=== PATIENT | female | born 1940 | race Caucasian/White ===

== ENCOUNTER 2016-11-06 09:41 | Outpatient (CLI) | payer OTHER ==
[~2016-11-06] VITALS: Ht 165.1 cm; Wt 84.4 kg
[~2016-11-06 09:41] MED LIST: ATOR1TAB19 PO; BALS75CA PO; CALC600T60 PO; CARV12.5 PO; CENTTAB47 PO; FLUO20CA8 PO; PRAD150C PO
[2016-11-06] MEDS ORDERED: NS 1,000 ML IV ONE (10:00)
[2016-11-06] MEDS ORDERED: LIDOCAINE 2% INJ 100 MG/5 ML SDV (FOR ANES.) As Ordered ONE (10:59)
[2016-11-06] MEDS ORDERED: PROPOFOL 200 MG/20 ML VIAL As Ordered ONE ×2 (10:59→11:04)
--- NOTE | 2016-11-06 11:12 | ROOR ---
Patient Name: Asia Sharp Procedure Date: 11/06/2016 10:45 AM Date of : 1940 Age: 76 Room: [facility] Gender: Female Note Status: Finalized Procedure: Total Colonoscopy to Cecum + Bx. To r/o Microscopic Colitis Indications: Lower abdominal pain, Clinically significant diarrhea of unexplained origin, Rectal bleeding Providers: Dionicio Yanez MD Referring MD: Alia West MD Requesting Provider: Medicines: Monitored Anesthesia Care Complications: No immediate complications. Procedure: Pre-Anesthesia Assessment: - The heart rate, respiratory rate, oxygen saturations, blood pressure, adequacy of pulmonary ventilation, and response to care were monitored throughout the procedure. The Colonoscope was introduced through the anus and advanced to the cecum, identified by appendiceal orifice and ileocecal valve. The colonoscopy was performed without difficulty. The patient tolerated the procedure well. The quality of the bowel preparation was excellent. Findings: The perianal and digital rectal examinations were normal. Non-bleeding internal hemorrhoids were found during retroflexion. The hemorrhoids were small and Grade I (internal hemorrhoids that do not prolapse). No other significant abnormalities were identified in a careful examination of the remainder of the colon. Biopsies for histology were taken with a cold forceps from the ascending colon, transverse colon, descending colon and rectosigmoid colon for evaluation of microscopic colitis. The exam was otherwise without abnormality on direct and retroflexion views. Impression: - Non-bleeding internal hemorrhoids. - The examination was otherwise normal on direct and retroflexion views. - Biopsies were taken with a cold forceps from the ascending colon, transverse colon, descending colon and rectosigmoid colon for evaluation of microscopic colitis. - The exam was otherwise normal to the cecum. Recommendation: - Patient has a contact number available for emergencies. The signs and symptoms of potential delayed complications were discussed with the patient. Return to normal activities tomorrow. Written discharge instructions were provided to the patient. - High fiber diet. - Discharge patient to home. - Continue present medications. - Await pathology results. - Telephone GI clinic for pathology results in 1 week. - Return to referring physician. - Check Portal Online for Path Results.([email or web address]) - The findings and recommendations were discussed with the patient's family. Dionicio Yanez MD Dionicio Yanez MD 11/06/2016 11:11:44 AM This report has been signed electronically. Number of Addenda: 0 Note Initiated On: 11/06/2016 10:45 AM Estimated Blood Loss: Estimated blood loss: none.
[2016-11-06 11:39] VITALS: BP 123/66
== END 2016-11-06 11:41 | disposition home or self-care (01) ==
LOC: M OPP 09:41
PROVIDERS: ATTEND Internal Medicine Gastroenterology
DX: R10.30 Lower abdominal pain, unspecified (principal); R19.4 Change in bowel habit; R19.7 Diarrhea, unspecified; K62.5 Hemorrhage of anus and rectum; K64.0 First degree hemorrhoids; I48.91 Unspecified atrial fibrillation; I10 Essential (primary) hypertension; E78.5 Hyperlipidemia, unspecified; E07.9 Disorder of thyroid, unspecified; K52.9 Noninfective gastroenteritis and colitis, unspecified; Z79.01 Long term (current) use of anticoagulants; Z79.899 Other long term (current) drug therapy; Z80.0 Family history of malignant neoplasm of digestive organs

== ENCOUNTER 2018-07-13 17:44 | Emergency (ER) | payer MEDICARE, OTHER ==
[~2018-07-13] VITALS: Ht 165.1 cm; Wt 84.5 kg
[~2018-07-13 17:44] MED LIST changes: -PRAD150C PO; +PRAD150C6 PO
[2018-07-13] MEDS ORDERED: TRAZ-160 (18:10)
[2018-07-13] MEDS ORDERED: FLUO40CA (18:10)
[2018-07-13 21:39] VITALS: BP 146/70
== END 2018-07-13 21:41 | disposition home or self-care (01) ==
LOC: M ED 17:44
DX: F32.9 Major depressive disorder, single episode, unspecified (principal); G47.00 Insomnia, unspecified; Z79.899 Other long term (current) drug therapy

== ENCOUNTER → 2018-08-24 | Outpatient (CLI) | payer MEDICARE ==
[~2018-08-24] MED LIST changes: +FLUO40CA; +TRAZ-252
[2018-08-24 13:35] LABS: CHOLESTEROL RISK RATIO 2.611 (<5)
== END ==
LOC: M WUC 08:28
PROVIDERS: ATTEND Psychiatry & Neurology Psychiatry
DX: Z79.899 Other long term (current) drug therapy (principal)

== ENCOUNTER → 2020-07-09 | Outpatient (CLI) | payer MEDICARE ==
[~2020-07-09] MED LIST changes: +FLUO20CA20 PO; +FLUO20CA22 PO; -FLUO20CA8 PO; +QUET25TA3 PO
== END ==
LOC: M LABSMTC 10:44
PROVIDERS: ATTEND Anesthesiology
DX: Z01.812 Encounter for preprocedural laboratory examination (principal)

== ENCOUNTER 2020-07-14 08:15 | Day surgery (SDC) | payer MEDICARE ==
[~2020-07-14] VITALS: Ht 165.1 cm; Wt 92.5 kg
[2020-07-14] MEDS ORDERED: NS 1,000 ML IV ONE (08:50)
[2020-07-14] MEDS ORDERED: LIDOCAINE 2% 100MG/5ML SDV (FOR ANES.) As Ordered ONE (09:48)
[2020-07-14] MEDS ORDERED: propofoL 200 MG/20 ML VIAL As Ordered ONE (09:48)
[2020-07-14] MEDS ORDERED: LABETALOL 100MG/20ML VIAL As Ordered ONE (10:03)
--- NOTE | 2020-07-14 10:11 | ROOR ---
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 Procedure: Pre-Anesthesia Assessment: - The heart rate, respiratory rate, oxygen saturations, blood pressure, adequacy of pulmonary ventilation, and response to care were monitored throughout the procedure. The Colonoscope was introduced through the anus and advanced to the terminal ileum, with identification of the appendiceal orifice and IC valve. The colonoscopy was performed without difficulty. The patient tolerated the procedure well. The quality of the bowel preparation was excellent. Findings: The perianal and digital rectal examinations were normal. Non-bleeding internal hemorrhoids were found during retroflexion. The hemorrhoids were small and Grade I (internal hemorrhoids that do not prolapse). Scattered small-mouthed diverticula were found in the recto-sigmoid colon, sigmoid colon and descending colon. The terminal ileum appeared normal. Biopsies for histology were taken with a cold forceps from the ascending colon, transverse colon, descending colon and rectosigmoid colon for evaluation of microscopic colitis. The exam was otherwise without abnormality on direct and retroflexion views. Impression: - Non-bleeding internal hemorrhoids. - Diverticulosis in the recto-sigmoid colon, in the sigmoid colon and in the descending colon. - The examined portion of the ileum was normal. - The examination was otherwise normal on direct and retroflexion views. - Biopsies were taken with a cold forceps from the ascending colon, transverse colon, descending colon and rectosigmoid colon for evaluation of microscopic colitis. - The exam was otherwise normal to the cecum. Recommendation: - Patient has a contact number available for emergencies. The signs and symptoms of potential delayed complications were discussed with the patient. Return to normal activities tomorrow. Written discharge instructions were provided to the patient. - High fiber diet. - Discharge patient to home. - Continue present medications. - Await pathology results. - Telephone GI clinic for pathology results in 1 week. - Repeat colonoscopy PRN for screening purposes. - Return to referring physician. - The findings and recommendations were discussed with the patient. Procedure Code(s): --- Professional --- 35885, Colonoscopy, flexible; with biopsy, single or multiple Diagnosis Code(s): --- Professional --- K52.3, Indeterminate colitis K64.0, First degree hemorrhoids K57.30, Diverticulosis of large intestine without perforation or abscess without bleeding CPT copyright 2019 [employer]. All rights reserved. The codes documented in this report are preliminary and upon pasteurizing machine operator review may be revised to meet current compliance requirements. Dionicio Yanez MD Dionicio Yanez MD 07/14/2020 10:11:21 AM Electronically signed by Dionicio Yanez MD Number of Addenda: 0 Note Initiated On: 07/14/2020 9:45 AM Estimated Blood Loss: Estimated blood loss: none.
[2020-07-14 10:35] VITALS: BP 190/89
== END 2020-07-14 10:34 | disposition home or self-care (01) ==
LOC: M OPP 08:15
PROVIDERS: ATTEND Internal Medicine Gastroenterology
DX: D12.6 Benign neoplasm of colon, unspecified (principal); K57.30 Diverticulosis of large intestine without perforation or abscess without bleeding; K64.0 First degree hemorrhoids; K52.3 Indeterminate colitis; R19.7 Diarrhea, unspecified; Z80.0 Family history of malignant neoplasm of digestive organs; K92.1 Melena; Z79.899 Other long term (current) drug therapy

== ENCOUNTER → 2023-04-25 | Outpatient (CLI) | payer MEDICARE ==
[~2023-04-25] MED LIST changes: +FLUO-96 PO; -FLUO20CA20 PO; +QUET1TAB17 PO; -QUET25TA3 PO
== END ==
LOC: M SOG 07:52
PROVIDERS: ATTEND Orthopaedic Surgery
DX: M25.562 Pain in left knee (principal); M25.561 Pain in right knee

== ENCOUNTER → 2023-06-06 | Outpatient (CLI) | payer MEDICARE | LOC: M SOG 09:35 | PROVIDERS: ATTEND Orthopaedic Surgery | DX: M17.0 Bilateral primary osteoarthritis of knee (principal) ==

== ENCOUNTER → 2023-07-07 | Outpatient (CLI) | payer MEDICARE | LOC: M RAD 12:22 | PROVIDERS: ATTEND Orthopaedic Surgery | DX: M17.11 Unilateral primary osteoarthritis, right knee (principal) ==

== ENCOUNTER → 2024-03-01 | Outpatient (CLI) | payer MEDICARE ==
[~2024-03-01] MED LIST changes: +ACET-1349 PO; +CALC1TAB63 PO; +CLON1TAB8 PO; +FERR325T19 PO; +FLUO-365 PO; -FLUO20CA22 PO; -FLUO40CA; +FLUO40CA PO; +LISI10TA22 PO; +NITR0.4S14 SL; +PROZ20CA11 PO; +QUET50TA4 PO; +THERTAB52 PO
== END ==
LOC: M CARPUL 08:30
PROVIDERS: ATTEND Registered Nurse
DX: I34.0 Nonrheumatic mitral (valve) insufficiency (principal); I27.20 Pulmonary hypertension, unspecified